=== PATIENT | male | born 1945 | race Caucasian/White ===

== ENCOUNTER 2016-12-08 17:12 | Inpatient (IN) ==
[2016-12-08] MEDS ORDERED: Furosemide 40 MG/4 ML VIAL IVP ONE (20:28)
[2016-12-08] MEDS ORDERED: Ipratropium/Albuterol Neb 3 ML IH ONE (20:28)
[2016-12-08 20:33] LABS: Basophils % 0.3 %; Eosinophils # 0.4 K/mcL (0.0-0.6); Eosinophils % 3.1 %; Hematocrit 40.8 % (37.5-50.1); Hemoglobin 13.3 g/dL (12.9-16.9); Lymphocytes # 0.7 K/mcL (0.6-4.6); Lymphocytes % 6.1 %; Mean Corpuscular HGB Conc 32.6 g/dL (31.6-35.5); Mean Corpuscular Hemoglobin 31.4 pg (28.0-33.3); Mean Corpuscular Volume 96.2 fL (83.0-100.0); Mean Platelet Volume 9.6 fL (9.4-12.4); Monocytes # 0.6 K/mcL (0.0-1.3); Monocytes % 5.1 %; Neutrophils # 10.1 K/mcL (1.6-8.9); Platelet Count 206 K/mcL (140-400); Red Blood Count 4.24 M/mcL (4.19-5.50); Red Cell Distribution Width 15.5 % (11.5-14.5); Segmented Neutrophils % 84.4 %
[2016-12-08] MEDS ORDERED: *HR* HYDROmorphone (PF) 1 MG/ML SYRINGE IV ONE (20:44)
[2016-12-08] MEDS ORDERED: Levofloxacin 750 MG/150 ML 750 MG/150 ML BAG IVPB ONE (20:44)
[2016-12-08 20:45] LABS: BUN/Creatinine Ratio 15 (6-26); Blood Urea Nitrogen 20 mg/dL (8-26); Calcium 8.9 mg/dL (8.6-10.8); Carbon Dioxide 28 mEq/L (19-29); Chloride 89 mEq/L (98-109); Glucose 206 mg/dL (70-99); Osmolality,Calculated 281 (280-300); Potassium 3.8 mEq/L (3.5-4.5); Sodium 131 mEq/L (136-145); eGFR For African Americans > 60 (> 60); eGFR For Non-African Americans 52 (> 60)
--- NOTE | 2016-12-08 20:50 | Emergency Department Note ---
Disposition Clinical Impression: Right upper lobe pneumonia Qualifiers: Pneumonia type: due to unspecified organism Qualified Code(s): J18.9 - Pneumonia, unspecified organism Congestive heart failure Qualifiers: Congestive heart failure type: unspecified congestive heart failure type Congestive heart failure chronicity: acute on chronic Qualified Code(s): I50.9 - Heart failure, unspecified Dyspnea Qualifiers: Dyspnea type: unspecified Qualified Code(s): R06.00 - Dyspnea, unspecified Disposition: Admitted As Inpatient Condition: Serious [facility]: [facility]Primary Care Provider[facility] - Forms: ED Satisfaction Letter Time of Disposition: 20:58 SOB HPI - General Chief Complaint: ED Shortness of Breath/Dyspnea Stated Complaint: Increased shortness of breath Time Seen by Provider: 12/08/16 19:53 Source: patient Mode of arrival: private vehicle Limitations: no limitations Nursing Notes Reviewed: Yes Vital Signs Reviewed: Yes - History of Present Illness Pt Subjective Complaint: shortness of breath, cough Onset (ago): day(s) Severity: severe Consistency/Duration: gradually worsening Improves with: nothing Worsens with: exertion Known history of: congestive heart failure Associated symptoms: Reports: cough, sputum production, other (Swelling of legs) Cough present: Yes Cough Frequency: Persistent Sputum production: Yes Sputum Color: Yellow, Green - Related Data Home oxygen amount: 4 liters Home Medications Medication Instructions Recorded Confirmed Albuterol Sulfate [Albuterol 2 puff IH Q6H PRN 09/23/16 12/08/16 Inhaler] Atorvastatin Calcium 80 mg PO HS 09/23/16 12/08/16 Divalproex (24 HR) [Depakote ER 750 mg PO HS 09/23/16 12/08/16 (24 HR)] Gabapentin [Neurontin] 100 mg PO BID 09/23/16 12/08/16 GuaiFENesin/Dextromethorphan 10 ml PO Q4HR PRN 09/23/16 12/08/16 [Robitussin/Dm] Lidocaine 4% CRM (LMX) [Lmx 4] 1 gm TP TID PRN 09/23/16 12/08/16 Lisinopril [Zestril] 2.5 mg PO DAILY PRN 09/23/16 12/08/16 Nitroglycerin [Nitrostat] 0.4 mg SL Q5M PRN 09/23/16 12/08/16 Ranitidine HCl [Acid Communications Tower Technician] 150 mg PO BID 09/23/16 12/08/16 Triamcinolone Acet 0.1% CRM 1 appl TP TID 09/23/16 12/08/16 [Kenalog] Albuterol Neb [Proventil Neb] 2.5 mg IH Q6H PRN 12/08/16 12/08/16 Azithromycin [Zithromax] 250 mg PO MOWEFR 12/08/16 12/08/16 Budesonide/Formoterol 160/4.5 2 puff IH BIDR 12/08/16 12/08/16 [Symbicort 160/4.5] Carvedilol 3.125 mg PO BID 12/08/16 12/08/16 Furosemide [Lasix] 80 mg PO BID 12/08/16 12/08/16 LORazepam [Ativan] 0.5 mg PO TID PRN 12/08/16 12/08/16 Loratadine [Claritin] 10 mg PO DAILY 12/08/16 12/08/16 Oxygen 4 l NS CONT 12/08/16 12/08/16 PredniSONE 5 mg PO DAILY 12/08/16 12/08/16 Spironolactone [Aldactone] 12.5 mg PO DAILY 12/08/16 12/08/16 Tiotropium [Spiriva] 18 mcg IH DAILY 12/08/16 12/08/16 Previous Rx's Medication Instructions Recorded Aspirin 81 mg PO DAILY tab.chew 09/26/16 Clopidogrel [Plavix] 75 mg PO DAILY #30 tablet 09/26/16 Allergies Allergy/AdvReac Type Severity Reaction Status Date / Time Sulfa (Sulfonamide Allergy Vomiting Verified 09/22/16 23:15 Antibiotics) Amoxicillin [From Augmentin] AdvReac Hives Verified 12/08/16 17:59 clavulanic acid AdvReac Hives Verified 12/08/16 17:59 [From Augmentin] All systems ED: reviewed and negative except as stated. Constitutional: Denies: fever, chills ENT ED: Denies: ear pain, throat pain, congestion Cardiovascular: Reports: dyspnea on exertion, orthopnea. Denies: chest pain, palpitations Respiratory: Reports: cough, dyspnea, wheezes, sputum production Gastrointestinal: Denies: abdominal pain, nausea, vomiting, diarrhea Musculoskeletal: Denies: back pain Integumentary: Reports: rash (Diffuse itchy rash after taking an outpatient antibiotic) Neurological: Denies: headache Past Medical History - Past Medical History Attestation: Yes The following information was validated with the patient. Source: patient, old records reviewed, obtained from family, nursing notes reviewed Medical history: Reports: CHF, COPD, coronary artery disease, CVA, hyperlipidemia, hypertension, myocardial infarction, renal disease Surgical history: Reports: angioplasty/stent, pacemaker/AICD Psychiatric history: Reports: anxiety - Social History Smoking Status: Former smoker Smokeless Tobacco Status: No Alcohol use: Reports: none Drug use: Reports: none Physical Exam - General Limitations: no limitations General appearance: alert, other (Visibly short of breath) - Head Head exam: atraumatic, normocephalic - Eye Eye exam: Present: normal appearance, PERRL, EOMI - ENT ENT exam: normal exam, normal oropharynx, normal external ear exam - Neck Neck exam: Present: normal inspection, full ROM - Chest Chest inspection: Present: normal inspection, symmetric chest wall rise. Absent : tenderness - Respiratory Respiratory exam: Present: respiratory distress (He has tachypnea and frequent cough), wheezes, other (He has rales bilaterally as well.) - Cardiovascular Cardiovascular exam: Present: normal rhythm, tachycardia, normal heart sounds - Abdominal Exam Abdominal exam: Present: soft, Non-Tender - Extremities Exam Extremities exam: Present: full ROM, pedal edema (Left is significantly more edematous than the right. He also complains of tenderness to the left leg) - Neurological Exam Neurological exam: Present: alert, oriented X3 - Psychiatric Psychiatric exam: Present: normal affect, normal mood - Skin Skin exam: Present: warm, dry, rash (Patient has a rash across his trunk that looks like a drug eruption.) Course Course Narrative: Patient presents with shortness of breath is worsening over the past several days. He has edema in his legs and he has rales in his lungs and extensive history of congestive heart failure. He however is coughing up a thick green mucus which I was able to visualize. His chest x-ray shows a pneumonia. I suspect that this is a pneumonia that exacerbating his congestive heart failure. He needs to be admitted to the hospital given how short of breath he appears. We will start breathing treatments treatments and start antibiotics right away. Once I get the labs back, I will consult the hospitalist for admission. - Reevaluation(s) Reevaluation #1: Patient has pneumonia on chest x-ray and I think this is exacerbating his congestive heart failure. I started Levaquin. He received some breathing treatments. He is going to be admitted to the hospital to the hospitalist service. Time: 22:44 - Consultations Consultation #1: [facility] - I discussed the case with the hospitalist. She accepted the patient for admission to the hospital. Time: 22:43 Vital Signs Temperature 97.7 F 12/08/16 17:54 Pulse Rate 104 12/08/16 17:54 Respiratory Rate 20 12/08/16 17:54 Blood Pressure 96/51 12/08/16 17:54 O2 Sat by Pulse Oximetry 95 12/08/16 17:54 Temperature 97.7 F 12/08/16 17:54 Pulse Rate 104 12/08/16 22:15 Respiratory Rate 16 12/08/16 22:15 Blood Pressure 157/86 12/08/16 22:15 O2 Sat by Pulse Oximetry 94 L 12/08/16 22:15 Oxygen Delivery Oxygen Delivery Nasal Cannula Shortness of Breath/Dyspnea - Medical Records Medical records reviewed: Yes I reviewed the patient's medical records. - Lab Data Lab results reviewed: Yes I reviewed the patient's lab results. Result diagrams: 12/08/16 20:21 12/08/16 20:21 Lab Results 12/08/16 12/08/16 12/08/16 Range/Units 20:21 20:21 20:21 WBC 12.0 H (4.3-11.1) K/mcL RBC 4.24 (4.19-5.50) M/mcL Hgb 13.3 (12.9-16.9) g/dL Hct 40.8 (37.5-50.1) % MCV 96.2 (83.0-100.0) fL MCH 31.4 (28.0-33.3) pg MCHC 32.6 (31.6-35.5) g/dL RDW 15.5 H (11.5-14.5) % Plt Count 206 (140-400) K/mcL MPV 9.6 (9.4-12.4) fL Immature Gran % 1.0 (0-4) % Seg Neutrophils % 84.4 % Lymphocytes % 6.1 % Monocytes % 5.1 % Eosinophils % 3.1 % Basophils % 0.3 % Neutrophils # 10.1 H (1.6-8.9) K/mcL Lymphocytes # 0.7 (0.6-4.6) K/mcL Monocytes # 0.6 (0.0-1.3) K/mcL Eosinophils # 0.4 (0.0-0.6) K/mcL Basophils # 0.0 (0.0-0.2) K/mcL Sodium 131 L (136-145) mEq/L Potassium 3.8 (3.5-4.5) mEq/L Chloride 89 L (98-109) mEq/L Carbon Dioxide 28 (19-29) mEq/L BUN 20 (8-26) mg/dL Creatinine 1.36 H (0.72-1.25) mg/dL Est GFR ( Amer) > 60 (> 60) Est GFR (Non-Af Amer) 52 L (> 60) BUN/Creatinine Ratio 15 (6-26) Glucose 206 H (70-99) mg/dL Calculated Osmolality 281 (280-300) Calcium 8.9 (8.6-10.8) mg/dL Troponin I 0.08 H* (0-0.03) ng/mL B-Natriuretic Peptide (0-100) pg/mL 12/08/16 Range/Units 20:21 WBC (4.3-11.1) K/mcL RBC (4.19-5.50) M/mcL Hgb (12.9-16.9) g/dL Hct (37.5-50.1) % MCV (83.0-100.0) fL MCH (28.0-33.3) pg MCHC (31.6-35.5) g/dL RDW (11.5-14.5) % Plt Count (140-400) K/mcL MPV (9.4-12.4) fL Immature Gran % (0-4) % Seg Neutrophils % % Lymphocytes % % Monocytes % % Eosinophils % % Basophils % % Neutrophils # (1.6-8.9) K/mcL Lymphocytes # (0.6-4.6) K/mcL Monocytes # (0.0-1.3) K/mcL Eosinophils # (0.0-0.6) K/mcL Basophils # (0.0-0.2) K/mcL Sodium (136-145) mEq/L Potassium (3.5-4.5) mEq/L Chloride (98-109) mEq/L Carbon Dioxide (19-29) mEq/L BUN (8-26) mg/dL Creatinine (0.72-1.25) mg/dL Est GFR ( Amer) (> 60) Est GFR (Non-Af Amer) (> 60) BUN/Creatinine Ratio (6-26) Glucose (70-99) mg/dL Calculated Osmolality (280-300) Calcium (8.6-10.8) mg/dL Troponin I (0-0.03) ng/mL B-Natriuretic Peptide 1103 H (0-100) pg/mL - Radiology Data Radiology results reviewed: Yes I reviewed the patient's radiology results. - EKG Data EKG attestation: Yes I reviewed and interpreted this EKG. EKG shows normal: Reports: sinus rhythm, axis, intervals, QRS complexes, ST-T waves Rate: Reports: tachycardia Interpretation: Reports: other (Sinus tachycardia without ischemic change)
[2016-12-09] MEDS ORDERED: Nitroglycerin 0.4 MG TAB.SUBL SL PRN (00:15)
[2016-12-09] MEDS ORDERED: Naloxone 0.4 MG/ML INJ IVP PRN (00:28)
--- NOTE | 2016-12-09 00:51 | Internal Med History&Physical ---
Date of Encounter: 12/09/16 Time of Encounter: 00:10 Assessment and Plan (1) Acute exacerbation of CHF (congestive heart failure) Current visit: No Status: Acute Status post pacemaker with AICD due to low EF. 6lbs weight gain in the past 3 days, worsening orthopnea, BNP of 1103, and worsening swelling. Coreg increased to 6.25 BID. 60mg IV lasix BID. Incentive spirometry. I/Os with daily weights. Most recent echo in August 2016 shows EF of 30-35%. Asymmetric swelling of the lower extremities with Left > Right, Ultrasound was negative for DVT. Qualifiers: Congestive heart failure type: systolic Qualified Code(s): I50.23 - Acute on chronic systolic (congestive) heart failure (2) Acute respiratory failure with hypoxia Current visit: No Status: Acute COPD exacerbation secondary to acute CHF exacerbation. Continue home steroids 5mg/day. Chest CT deomstrated sever emphysema with bilateral airspace disease most likely atalectasis and/ or scarring. No definite evidence of pneumonia is identified. Supplemental oxygen 4L, saturating well on 4L. Head of the bed elevated. Treat underlying CHF exacerbation, see above. (3) Elevated troponin Current visit: Yes Status: Acute Likely secondary to demand ischemia. Initial troponin .08 and repeat was .09. Will continue to trend troponins. (4) DVT prophylaxis Current visit: No Status: Acute Lovenox (5) CAD (coronary artery disease) Current visit: No Status: Chronic Status post stent placement Continue lipitor and carvedilol increased to 6.25. Continue plavix Qualifiers: Coronary Disease-Associated Artery/Lesion type: unspecified vessel or lesion type [place] vs. transplanted heart: unspecified whether [place] or transplanted heart Associated angina: angina presence unspecified Qualified Code(s): I25.10 - Atherosclerotic heart disease of [place] coronary artery without angina pectoris (6) CKD (chronic kidney disease) stage 3, GFR 30-59 ml/min Current visit: No Status: Chronic continue to monitor Creatinine 1.36 at this time, which is improved from previous admissions. Patient only reports having one functioning kidney. Internal Medicine - H&P: HPI Chief complaint: dyspnea Admitted From: Emergency Dept Plans for Post Hospital Care: Home History of present illness: Mr. Amor is a 71 year old male with PMH of CHF, COPD, CAD, CVA, HLD, HTN, MO , and renal disease who presented to the emergency department for shortness of breath. The patient has a longstanding history of COPD and is on 4L oxygen at home with daily prednisone of 5mg and Azithromycin doses given on Monday, Monday, and Monday. The patient has had underlying shortness of breath for the past two and a half months, with acute worsening in the past 2 days. The patient reports a 6lbs weight gain in the past two days, and he reports wheezing , cough productive of green sputum, increased swelling, and severe orthopnea. He denies fevers and chills. The patient's family was present for gathering of the history and gave additional information stating that the patient had a STEMI in 2004 and additional MO in August with his defibrillator going off twice that month. He has since had runs of ventricular tachycardia. He was put on amiodarone in August, but was taken off again on September 30 due to severe side effects causing deterioration in the patient. They stated that around this time he was so weak that he was unable to sit up on his own in bed. He is now able to ambulate on his own with a cane, so he has improved overall, but continues to have complications due to his COPD. He has been treated on and off for pneumonia constantly since August and was recently tried on Augmentin, but had a rash shortly after starting it, so it was discontinued. Past Med Surg Social Fam HX - Past Medical History Medical history: CHF, COPD, coronary artery disease, CVA, hyperlipidemia, hypertension, myocardial infarction, renal disease Psychiatric history: anxiety - Past Surgical History Surgical History: angioplasty/stent, pacemaker/AICD - Social History Smoking Status: Former smoker Smokeless Tobacco Status: No Alcohol use: none Drug use: none - Family History Father Living Status: Hx Family Cardiac Disorders: Yes (MO) Hx Family Respiratory Disorders: No Hx Family Cancer: No Hx Family GI Disorders: No Hx Family Endocrine Disorder: No Hx Family Neuromuscular Disorders: No Hx Family Neurologic Disorders: No Hx Family HEENT Disorders: No Hx Family Autoimmune Disorders: No Mother Living Status: Hx Family Cardiac Disorders: No Hx Family Respiratory Disorders: No Hx Family Cancer: Yes (breast) Hx Family GI Disorders: No Hx Family Endocrine Disorder: No Hx Family Neuromuscular Disorders: No Hx Family Neurologic Disorders: No Hx Family HEENT Disorders: No Hx Family Autoimmune Disorders: No Brother Living Status: Still Living Hx Family Cardiac Disorders: Yes Hx Family Respiratory Disorders: No Hx Family Cancer: No Hx Family GI Disorders: No Hx Family Endocrine Disorder: No Hx Family Neuromuscular Disorders: No Hx Family Neurologic Disorders: No Hx Family HEENT Disorders: No Hx Family Autoimmune Disorders: No Daughter Living Status: Still Living Hx Family Cardiac Disorders: Yes Hx Family Respiratory Disorders: No Hx Family Cancer: No Hx Family GI Disorders: No Hx Family Endocrine Disorder: No Hx Family Neuromuscular Disorders: No Hx Family Neurologic Disorders: No Hx Family HEENT Disorders: No Hx Family Autoimmune Disorders: No Internal Medicine - H&P: Meds Albuterol Sulfate [Albuterol Inhaler] 2 puff IH Q6H PRN 09/23/16 [History] Atorvastatin Calcium 80 mg PO HS 09/23/16 [History] Divalproex (24 HR) [Depakote ER (24 HR)] 750 mg PO HS 09/23/16 [History] Gabapentin [Neurontin] 100 mg PO BID 09/23/16 [History] GuaiFENesin/Dextromethorphan [Robitussin/Dm] 10 ml PO Q4HR PRN 09/23/16 [History ] Lidocaine 4% CRM (LMX) [Lmx 4] 1 gm TP TID PRN 09/23/16 [History] Lisinopril [Zestril] 2.5 mg PO DAILY PRN 09/23/16 [History] Nitroglycerin [Nitrostat] 0.4 mg SL Q5M PRN 09/23/16 [History] Ranitidine HCl [Acid Theater Company Producer] 150 mg PO BID 09/23/16 [History] Triamcinolone Acet 0.1% CRM [Kenalog] 1 appl TP TID 09/23/16 [History] Aspirin 81 mg PO DAILY tab.chew 09/26/16 [Rx] Clopidogrel [Plavix] 75 mg PO DAILY #30 tablet 09/26/16 [Rx] Albuterol Neb [Proventil Neb] 2.5 mg IH Q6H PRN 12/08/16 [History] Azithromycin [Zithromax] 250 mg PO MOWEFR 12/08/16 [History] Budesonide/Formoterol 160/4.5 [Symbicort 160/4.5] 2 puff IH BIDR 12/08/16 [ History] Carvedilol 3.125 mg PO BID 12/08/16 [History] Furosemide [Lasix] 80 mg PO BID 12/08/16 [History] LORazepam [Ativan] 0.5 mg PO TID PRN 12/08/16 [History] Loratadine [Claritin] 10 mg PO DAILY 12/08/16 [History] Oxygen 4 l NS CONT 12/08/16 [History] PredniSONE 5 mg PO DAILY 12/08/16 [History] Spironolactone [Aldactone] 12.5 mg PO DAILY 12/08/16 [History] Tiotropium [Spiriva] 18 mcg IH DAILY 12/08/16 [History] Allergies Sulfa (Sulfonamide Antibiotics) Allergy (Verified 09/22/16 23:15) Vomiting Amoxicillin [From Augmentin] Adverse Reaction (Verified 12/08/16 17:59) Hives clavulanic acid [From Augmentin] Adverse Reaction (Verified 12/08/16 17:59) Hives All Systems PM: A 10-system review of systems was performed and is negative for pertinent findings except as documented above in the HPI. - Constitutional Constitutional: no chills, no fever(s), no night sweats - EENT Eyes: no change in vision, no discharge, no pain, no photophobia Ears: no ear discharge, no ear pain, no tinnitus Nose, mouth and throat: no dysphagia, no nasal discharge, no neck pain, no sore throat - Cardiovascular Cardiovascular ROS IM: dyspnea, orthopnea, no chest pain, no diaphoresis, no lightheadedness, no palpitations, no syncope - Respiratory Respiratory: cough, dyspnea, dyspnea on exertion, wheezing, excessive phlegm production, change in phlegm color - Gastrointestinal Gastrointestinal: no abdominal pain, no diarrhea, no hematemesis, no hematochezia, no melena, no nausea, no vomiting - Musculoskeletal Musculoskeletal ROS IM: no numbness, no tingling - Integumentary Integumentary IM: no rash, no unusual bruising - Neurological Neurological ROS: no confusion, no convulsions, no focal weakness, no numbness, no tingling, no tremor(s) - Hematologic/Lymphatic Hematologic/Lymphatic: no easy bruising - Constitutional Vitals: Temp Pulse Resp BP Pulse Ox 97.7 F 104 20 152/78 95 12/08/16 23:48 01/12/17 23:48 12/08/16 23:48 12/08/16 23:48 12/08/16 23:48 General appearance: Present: cooperative, A&O X 3 - Head Head exam: Present: atraumatic, normocephalic - Eye Eye exam: Present: EOMI, PERRL, conjuntiva pink, sclera anicteric Pupils: Present: PERRL - Neck Neck exam general surgery: Present: supple, trachea midline. Absent: lymphadenopathy - Respiratory Respiratory exam: Present: decreased breath sounds (bilaterally), rhonchi, wheezes. Absent: accessory muscle use, rales Additional comments: poor air movement - Cardiovascular Cardiovascular exam: Present: RRR, +S1, +S2. Absent: diastolic murmur, gallop, rubs, systolic murmur - GI/Abdominal GI/Abdominal exam: Present: normal bowel sounds, soft, no peritoneal signs. Absent: distended, tenderness - Extremities Exam Extremities exam: Present: pedal edema (bilateral +3 on the left +2 on the right ), warm, radial pulses palpable and symetrical. Absent: calf tenderness, cyanotic - Neurological Exam Neurological exam: Present: CN II-XII intact, oriented X3, no focal deficits. Absent: facial droop, speech deficit - Skin Skin exam: Present: dry, intact, rash (present over the chest and abdomen consistent with drug eruption) Additional comments: some bruising present over the dorsal aspects of the hands. Internal Med - H&P Results - Labs CBC & Chem 7: 12/08/16 20:21 12/08/16 20:21 - Attending Attestation I examined this patient and my medical decision-making was reviewed with the OPTIMIZATION ANALYST/PA/Advanced Practice Nurse/Resident Physician. I agree with the documented findings, disposition and treatment plan as described except to the extent set forth below.
[2016-12-09] MEDS: Aspirin 81 MG TAB.CHEW PO SCH ×2 (01:40→08:46)
[2016-12-09] MEDS: Ipratropium/Albuterol Neb 3 ML IH SCH ×5 (03:51→23:01)
[2016-12-09] MEDS: *HR* Enoxaparin 40 MG/0.4 ML SYRINGE SQ SCH (06:19)
--- NOTE | 2016-12-09 06:56 | Venous Imaging Report ---
LE Venous Duplex Patient Name:Pradeep Amor Order Number:[id number] Procedure Date:12/08/2016 Date:1945ge:71 yrs Gender:Male Location:[facility] ED Room #: ER26 Dispatcher Electric Power:Shona Martell RDCS Referring MD:Ronald Blackmon MD finance insurance manager:[facility] Reading MD:Pradeep Jaime MD Primary Indications:Swelling of limb Secondary Indications: Risk Factors Yes/No Anticoagulants Yes Impressions: Normal left lower extremity deep and superficial venous exam. Normal contralateral common femoral vein. Recommendations: Preliminary given to Neymar in ED. Findings Venous Duplex Results: Right: Venous imaging of the lower extremity reveals full patency and normal vessel compressibility of the right common femoral. Doppler signals in the evaluated veins were normal. Left: Venous imaging of the lower extremity reveals full patency and normal vessel compressibility of the left distal iliac, left common femoral, left superficial femoral, left popliteal, left posterior tibial, left peroneal, left great saphenous and left lesser saphenous. Doppler signals in the evaluated veins were normal. Prior Study: No prior study available for comparison. Lower Extremity Venous Duplex Side Vein Compress Spontaneous Flow Augment Diameter (cm) Depth (cm) Left Distal Iliac Normal Yes Phasic Yes Left Common Femoral Normal Yes Phasic Yes Left Superficial Femoral Normal Yes Phasic Yes Left Popliteal Normal Yes Phasic Yes Left Posterior Tibial Normal Yes Phasic Yes Left Peroneal Normal Yes Phasic Yes Left Great Saphenous Normal Yes Phasic Yes Left Lesser Saphenous Normal Yes Phasic Yes Right Common Femoral Normal Yes Phasic Yes Updated by Pradeep Jaime MD on 12/09/2016 6:50:04 AM electronically signed on 12/09/2016 6:50:26 AM with status of Final
[2016-12-09] MEDS ORDERED: Furosemide 40 MG/4 ML VIAL IVP SCH (08:00)
[2016-12-09] MEDS: Gabapentin 100 MG CAPSULE PO SCH ×2 (08:45→20:50)
[2016-12-09] MEDS: Famotidine 20 MG TABLET PO SCH ×2 (08:46→20:50)
[2016-12-09] MEDS: predniSONE 5 MG TABLET PO SCH (08:46)
[2016-12-09] MEDS: Spironolactone 25 MG TABLET PO SCH (08:48)
--- NOTE | 2016-12-09 09:20 | Cardiology Consult Note ---
Date of Encounter: 12/09/16 Time of Encounter: 09:00 Assessment and Plan (1) Acute systolic CHF (congestive heart failure), NYHA class 4 Current Visit: No Status: Acute Acute on chronic systolic CHF. EF 35% on TTE in 2012. Change lasix to bumex 2 mg IV BID. Strict I&O and daily weight. Low sodium diet. CHF education reviewed. Monitor BMP. (2) Elevated troponin Current Visit: Yes Status: Acute Mild troponin elevation 0.06, 0.09, 0.11. Likely demand ischemia in the setting of acute on chronic systolic dysfunction and COPD exacerbation. TTE ordered by hospitalist. Will need most recent TTE from [place] to compare. Chest pain free. Continue asa, plavix, statin, and bb. (3) CAD (coronary artery disease) Current Visit: No Status: Chronic Status post multiple PCI in 2004, 2011, and 2014. Continue medical therapy. Qualifiers: Coronary Disease-Associated Artery/Lesion type: unspecified vessel or lesion type [place] vs. transplanted heart: unspecified whether mi[place]kmaq or transplanted heart Associated angina: angina presence unspecified Qualified Code(s): I25.10 - Atherosclerotic heart disease of mi'kmaq coronary artery without angina pectoris (4) ICD (implantable cardioverter-defibrillator) in place Current Visit: Yes Status: Acute Reports ICD shocks in 2014. No shocks since that time. Follows with Dr. Reyes in [place], [place] for device check. Discussion w patient/family: The assessment and plan as outlined above was discussed with the patient and/or family members who expressed understanding and agreement. All questions were answered. Thank you for involving us in the care of your patient. Please call with any questions. History of Present Illness Consult date: 12/09/16 Requesting physician: Israel Barrientos Consult reason: CHF Chief complaint: SOB, BLE edema History of present illness: Mr. Amor is a 71 year old male with a known history of CAD s/p multiple PCI, ICMP EF 35%, ICD placement in 2004, carotid artery disease, CVA, and COPD, who presented the hospital with worsening shortness of breath and BLE edema over the past week. He admits to a six lb gradual weight gain over the past two months. Admits to orthopnea. His cleaner and dyer from [facility] increased his lasix two weeks ago for lower extremity edema. He has always followed with [facility] for his heart disease since 2004, when he had his original infarct.Additional cardiac stents were placed in 2011 and 2014. He denies chest pain or palpitations. He is diagnosed with COPD exacerbations and acute on chronic systolic CHF. BNP 1103, mild troponin elevation up to 0.11. CT scan of the chest shows severe emphysema. Cardiology consulted for recommendations on CHF management. Past Med Surg Social Fam HX - Past Medical History Medical history: CHF, COPD, coronary artery disease, CVA, hyperlipidemia, hypertension, myocardial infarction, renal disease Psychiatric history: anxiety - Past Surgical History Surgical History: angioplasty/stent, pacemaker/AICD - Social History Smoking Status: Former smoker Smokeless Tobacco Status: No Alcohol use: none Drug use: none - Family History Father Living Status: Age at : 66 Cause of : Heart attack Hx Family Cardiac Disorders: Yes (OR) Hx Family Respiratory Disorders: No Hx Family Cancer: No Hx Family GI Disorders: No Hx Family Genitourinary Disorders: Yes (Kidney Disease) Hx Family Endocrine Disorder: No Hx Family Musculoskeletal Disorders: No Hx Family Neuromuscular Disorders: No Hx Family Neurologic Disorders: No Hx Family HEENT Disorders: No Hx Family Autoimmune Disorders: No Hx Family Reproductive Disorders: No Hx Family Psychosocial Disorders: Yes (Anxiety, Depression) Hx Family Medical Disorders: No Mother Living Status: Hx Family Cardiac Disorders: No Hx Family Respiratory Disorders: No Hx Family Cancer: Yes (breast) Hx Family GI Disorders: No Hx Family Endocrine Disorder: No Hx Family Neuromuscular Disorders: No Hx Family Neurologic Disorders: No Hx Family HEENT Disorders: No Hx Family Autoimmune Disorders: No Brother Living Status: Still Living Hx Family Cardiac Disorders: Yes Hx Family Respiratory Disorders: No Hx Family Cancer: No Hx Family GI Disorders: No Hx Family Endocrine Disorder: No Hx Family Neuromuscular Disorders: No Hx Family Neurologic Disorders: No Hx Family HEENT Disorders: No Hx Family Autoimmune Disorders: No Daughter Living Status: Still Living Hx Family Cardiac Disorders: Yes Hx Family Respiratory Disorders: No Hx Family Cancer: No Hx Family GI Disorders: No Hx Family Endocrine Disorder: No Hx Family Neuromuscular Disorders: No Hx Family Neurologic Disorders: No Hx Family HEENT Disorders: No Hx Family Autoimmune Disorders: No Medications and Allergies Albuterol Sulfate [Albuterol Inhaler] 2 puff IH Q6H PRN 09/23/16 [History] Atorvastatin Calcium 80 mg PO HS 09/23/16 [History] Divalproex (24 HR) [Depakote ER (24 HR)] 750 mg PO HS 09/23/16 [History] Gabapentin [Neurontin] 100 mg PO BID 09/23/16 [History] GuaiFENesin/Dextromethorphan [Robitussin/Dm] 10 ml PO Q4HR PRN 09/23/16 [History ] Lidocaine 4% CRM (LMX) [Lmx 4] 1 gm TP TID PRN 09/23/16 [History] Lisinopril [Zestril] 2.5 mg PO DAILY PRN 09/23/16 [History] Nitroglycerin [Nitrostat] 0.4 mg SL Q5M PRN 09/23/16 [History] Ranitidine HCl [Acid Immigration Consultant] 150 mg PO BID 09/23/16 [History] Triamcinolone Acet 0.1% CRM [Kenalog] 1 appl TP TID 09/23/16 [History] Aspirin 81 mg PO DAILY tab.chew 09/26/16 [Rx] Clopidogrel [Plavix] 75 mg PO DAILY #30 tablet 09/26/16 [Rx] Albuterol Neb [Proventil Neb] 2.5 mg IH Q6H PRN 12/08/16 [History] Azithromycin [Zithromax] 250 mg PO MOWEFR 12/08/16 [History] Budesonide/Formoterol 160/4.5 [Symbicort 160/4.5] 2 puff IH BIDR 12/08/16 [ History] Carvedilol 3.125 mg PO BID 12/08/16 [History] Furosemide [Lasix] 80 mg PO BID 12/08/16 [History] LORazepam [Ativan] 0.5 mg PO TID PRN 12/08/16 [History] Loratadine [Claritin] 10 mg PO DAILY 12/08/16 [History] Oxygen 4 l NS CONT 12/08/16 [History] PredniSONE 5 mg PO DAILY 12/08/16 [History] Spironolactone [Aldactone] 12.5 mg PO DAILY 12/08/16 [History] Tiotropium [Spiriva] 18 mcg IH DAILY 12/08/16 [History] Allergies Sulfa (Sulfonamide Antibiotics) Allergy (Verified 09/22/16 23:15) Vomiting Amoxicillin [From Augmentin] Adverse Reaction (Verified 12/08/16 17:59) Hives clavulanic acid [From Augmentin] Adverse Reaction (Verified 12/08/16 17:59) Hives All Systems Review: A 10-system review of systems was performed and is negative for pertinent findings except as documented above in the HPI. Physical Examination Vital Signs, Last 4 Hours Temp Pulse Resp BP Pulse Ox 12/09/16 08:02 97.7 F 80 18 156/74 94 L General: Conversant, No Apparent Distress HEENT: Atraumatic, Normocephaly, Mucus Membranes Moist Neck: No JVD, Normal carotid pulses Cardiac: Reg Rate and Rhythm, Normal S1 and S2, No Murmur Lungs: Other (Diminished in all lung lorenzo, shallow breathing, faint expiratory whezes. ) Neuro: Alert and responsive, No focal deficits noted Abdomen: Soft, Non-Tender Skin: No rashes noted on visualized skin Musculoskeletal: No Chest Wall Tenderness Extremities: Other (1+ edema from knee to ankles. ) Results 12/08/16 20:21 12/08/16 20:21 Lab Results 12/09/16 12/09/16 01:03 05:41 Troponin I 0.09 H* 0.11 H* - Imaging and Cardiology Echo: report reviewed (05/26/13- LVEF 35% * Mild diastolic dysfunction of the left ventricle. * Normal right ventricular size and function. * Mild aortic regurgitation. * Mild mitral regurgitation. * Unable to assess RVSP due to lack of adequate TR jet.) - EKG Interpretation EKG results cardiology: personally reviewed (ST , no acute ST changes.) Consult Discharge Plan - Plan [facility]: [facility] [Primary Care Provider] -
[2016-12-09 09:22] LABS: Bilirubin,Urine Negative (Negative); Blood,Urine Trace (Negative); Clarity,Urine Clear (Clear); Color,Urine Yellow (Yellow); Glucose,Urine (UA) Normal (Normal); Ketones,Urine Negative (Negative); Leukocyte Esterase,Urine Negative (Negative); Nitrite,Urine Negative (Negative); PH,Urine 5.5 pH Units (5.0-8.0); Protein,Urine 30 mg/dL (Neg-Trace); Specific Gravity,Urine 1.013 (1.010-1.025); Urobilinogen,Urine Normal (Normal)
[2016-12-09 09:24] LABS: Bacteria,Urine None Seen per hpf (None-Few); Hyaline Casts,Urine None Seen per lpf (None-Few); RBC,Urine 0-3 per hpf (0-3); Squamous Epithelial Cell,Urine Moderate per lpf (None-Few); WBC,Urine 0-3 per hpf (0-3)
--- NOTE | 2016-12-09 09:56 | Electrocardiograph Report ---
[facility] Test Date: 2016-12-08 Pat Name: Pradeep Amor Department: 104 Room: 2A34 Gender: M [employer] C[employer] Machine: [facility] : 1945 Requested By: Casper Mc Order Number: [id number] Reading MD: Jamila Santos Measurements Intervals [place] Rate: 102 P: 7 CO: 112 QRS: 34 QRSD: 125 T: 67 QT: 365 QTc: 423 Interpretive Statements SINUS TACHYCARDIA WITH SHORT CO INTERVAL MODERATE INTRAVENTRICULAR CONDUCTION DELAY ABNORMAL RHYTHM ECG WARNING: DATA QUALITY MAY AFFECT INTERPRETATION Electronically Signed On 12-09-16 09:56:01 EST by Jamila Santos
[2016-12-09] MEDS ORDERED: *HR* Dextrose 50 % in Water (Syg) 50 ML SYRINGE IVP PRN (12:17)
[2016-12-09] MEDS ORDERED: D5% in Water 1,000 ML IV PRN (12:17)
[2016-12-09] MEDS ORDERED: Dextrose Gel 15 GM PO PRN ×2 (12:17)
--- NOTE | 2016-12-09 15:14 | ECHO - Doppler Report ---
Echocardiogram Name: rPadeep Amor Date of Study: 12/09/2016 Date: 1945 Ht: 66.0 in Medical Record#: [id number] Age: 71 Wt: 182.0 lb Gender: Male BSA: 1.92 Order #: [id number] Location: [facility] OP Room #: 2A34 Reading Physician: Wayne Dunlap DO, LAYTON, SCOTT ANDERSON Supply Chain Intern: Shirley Awad RVT Ordering Physician: Israel Barrientos MD Primary Physician: [facility] Indications: Ischemic cardiomyopathy, Acute on chronic CHF Impressions: LVEF 30%. Severe global left ventricular systolic dysfunction with regional variation. Indeterminate diastolic function. Right ventricle was not well visualized. Grossly, it appears normal in size with near normal function. Mild aortic regurgitation, which was not well evaluated and could be underestimated. Unable to estimate RVSP due to lack of TR jet. A device lead was visualized in the right atrium and right ventricle. Left Ventricular Wall Motion: Rest Echo Findings The apex, apical inferior, mid inferior, basal inferior, apical anterior, mid anterior, basal anterior, apical septal, mid inferior septal, basal inferior septal, apical lateral, mid anterior lateral, basal anterior lateral, mid anterior septal, mid inferior lateral, basal anterior septal and basal inferior lateral gu were hypokinetic. Findings: Study Quality * Technically sub-optimal due to poor echocardiographic windows. ECG Findings * Sinus tachycardia. Left Ventricle * LVEF 30%. * Normal LV chamber size and wall thickness. * Severe global left ventricular systolic dysfunction with regional variation. * Indeterminate diastolic function. Right Ventricle * Right ventricle was not well visualized. Grossly, it appears normal in size with near normal function. Left Atrium * Mildly dilated left atrium. Right Atrium * Normal right atrial size. Interatrial Septum * Interatrial septum not well evaluated. Aortic Valve * Aortic valve not well visualized. * Grossly, the aortic valve appears mildly calcified. * Mild aortic regurgitation, which was not well evaluated and could be underestimated. * No aortic stenosis. Mitral Valve * Mildly thickened mitral valve leaflets. * Trace mitral regurgitation. * No mitral stenosis. Tricuspid Valve * Normal tricuspid valve structure and function. * No tricuspid regurgitation. * Unable to estimate RVSP due to lack of TR jet. Pulmonic Valve * Pulmonic valve not well visualized. Aorta * Normally sized aortic root. Pericardium * The pericardium appears normal. IVC * Normal IVC dimensions and inspiratory collapse. Device lead * A device lead was visualized in the right atrium and right ventricle. Pulmonary Artery * Pulmonary artery not well visualized. History Hypertension Hypercholesteremia Family History of CAD History of CAD/PTCA Myocardial Infarction Congestive Heart Failure Pacer/ICD Implant 05/27/2013 a Previous Echo was performed. Measurements: BP: 139/ 82 2D Normal Values RVIDd: 2.40 cm <2.7 cm IVSd: .70 cm 0.6 - 1.0 cm LVIDd: 5.60 cm 3.7 - 5.6 cm LVPWd: .50 cm 0.6 - 1.1 cm LVIDs: 5.00 cm 1.5 - 3.6 cm AO: 3.20 cm < 4.0 cm LA: 3.50 cm 2.0 - 4.0cm %FS: 10.70 cm >25 % LA volume: 58 Mitral Valve Peak E:1.40 m/sec Peak E' Lat Nirav:4.29 cm/s Peak E' Med Nirav:5.65 cm/s E/E' Lat Ratio:32.6 E/E' Med Ratio:24.8 Aortic Valve AI pressure Half-time: 290.00 msec Tricuspid Valve TV Regurg Peak Grad: 3.00mmHg TV Regurg Peak Nirav: .87m/sec Updated by Wayne Dunlap DO, FACChang, JUSTIN, SCOTT on 12/09/2016 3:07:49 PM electronically signed on 12/09/2016 3:08:25 PM with status of Final Wall Motion Davis: 1=Normal, 2=Hypokinesis, 3=Akinesis, 4=Dyskinesis, 5=Aneurysmal, 6=Hyperkinetic, X=Not Visualized (Blank)=Missing
[2016-12-09] MEDS ORDERED: Ondansetron 4 MG/2 ML VIAL IVP PRN (16:15)
[2016-12-09] MEDS: Bumetanide 1 MG/4 ML VIAL IVP SCH (17:09)
[2016-12-09] MEDS: Insulin LISPRO 300 UNITS/3 ML VIAL SQ SCH ×2 (17:14→20:39)
[2016-12-09] MEDS: Divalproex (24 HR) 250 MG TABLET PO SCH (20:50)
[2016-12-10] MEDS: Ipratropium/Albuterol Neb 3 ML IH SCH ×4 (03:32→23:27)
[2016-12-10] MEDS: *HR* Enoxaparin 40 MG/0.4 ML SYRINGE SQ SCH (06:04)
[2016-12-10 07:26] LABS: BUN/Creatinine Ratio 11 (6-26); Blood Urea Nitrogen 15 mg/dL (8-26); Calcium 8.8 mg/dL (8.6-10.8); Carbon Dioxide 33 mEq/L (19-29); Chloride 93 mEq/L (98-109); Glucose 111 mg/dL (70-99); Osmolality,Calculated 286 (280-300); Potassium 3.7 mEq/L (3.5-4.5); Sodium 137 mEq/L (136-145); eGFR For African Americans > 60 (> 60); eGFR For Non-African Americans 54 (> 60)
[2016-12-10] MEDS: Insulin LISPRO 300 UNITS/3 ML VIAL SQ SCH ×4 (08:44→21:57)
[2016-12-10] MEDS: Spironolactone 25 MG TABLET PO SCH (08:51)
[2016-12-10] MEDS: Gabapentin 100 MG CAPSULE PO SCH ×2 (08:51→20:06)
[2016-12-10] MEDS: predniSONE 5 MG TABLET PO SCH (08:51)
[2016-12-10] MEDS: Aspirin 81 MG TAB.CHEW PO SCH (08:51)
[2016-12-10] MEDS: Famotidine 20 MG TABLET PO SCH ×2 (08:52→20:06)
[2016-12-10] MEDS: Bumetanide 1 MG/4 ML VIAL IVP SCH ×2 (08:52→17:13)
[2016-12-10] MEDS: traMADol 50 MG TABLET PO PRN (14:02)
--- NOTE | 2016-12-10 19:11 | Internal Med Progress Note ---
Date of Encounter: 12/10/16 Time of Encounter: 11:00 - Assessment and plan (1) Dyspnea Current Visit: Yes Status: Acute Assessment and plan: Oxygen by nasal cannula. Maintain oxygen saturation above 92%. Continuous pulse oximetry. Qualifiers: Dyspnea type: unspecified Qualified Code(s): R06.00 - Dyspnea, unspecified (2) ICD (implantable cardioverter-defibrillator) in place Current Visit: Yes Status: Acute (3) Acute respiratory failure with hypoxia Current Visit: No Status: Acute (4) Acute systolic CHF (congestive heart failure), NYHA class 4 Current Visit: No Status: Acute Assessment and plan: IV Bumex. Fluid restriction 1200 mL daily. Daily weights. (5) CKD (chronic kidney disease) stage 3, GFR 30-59 ml/min Current Visit: No Status: Chronic Assessment and plan: Monitor BUN and creatinine closely. Avoid nephrotoxins. (6) UTI (urinary tract infection) Current Visit: Yes Status: Acute Assessment and plan: We will treat with ceftriaxone. 4 follow up urine culture and sensitivity. Qualifiers: Urinary tract infection type: acute cystitis Hematuria presence: without hematuria Qualified Code(s): N30.00 - Acute cystitis without hematuria - Subjective Interval history: Patient admitted with shortness of breath and abdominal lower extremity swelling , reports that over the last 24 hours he had increased urination and decreased swelling. His shortness of breath has improved significantly with diuretic treatment. - Constitutional Vitals: Temp Pulse Resp BP Pulse Ox 97.4 F L 92 18 121/78 94 L 12/10/16 17:19 12/10/16 17:19 12/10/16 17:19 12/10/16 17:19 12/10/16 17:19 General appearance: Present: cooperative, A&O X 3 - Respiratory Respiratory exam: Present: CTAB. Absent: accessory muscle use, rales, rhonchi, wheezes - Cardiovascular Cardiovascular exam: Present: RRR, +S1, +S2. Absent: diastolic murmur, gallop, rubs, systolic murmur - GI/Abdominal GI/Abdominal exam: Present: normal bowel sounds, soft, no peritoneal signs. Absent: distended, tenderness - Extremities Exam Extremities exam: Present: pedal edema, warm, radial pulses palpable and symetrical. Absent: calf tenderness, cyanotic - Skin Skin exam: Present: dry, intact Internal Medicine: Result - Labs CBC & Chem 7: 12/08/16 20:21 12/10/16 06:50 Labs: BMP 12/10/16 06:50 Sodium 137 Potassium 3.7 Chloride 93 L Carbon Dioxide 33 H BUN 15 Creatinine 1.32 H Glucose 111 H Calcium 8.8 Consult Discharge Plan - Plan [facility]errals: [facility] [Primary Care Provider] -
[2016-12-10] MEDS: *HR* LORazepam 1 MG TABLET PO PRN (20:06)
[2016-12-10] MEDS: Divalproex (24 HR) 250 MG TABLET PO SCH (20:07)
[2016-12-11] MEDS: Ipratropium/Albuterol Neb 3 ML IH SCH ×4 (05:07→22:15)
[2016-12-11] MEDS: *HR* Enoxaparin 40 MG/0.4 ML SYRINGE SQ SCH (07:30)
[2016-12-11 07:33] LABS: Basophils # 0.1 K/mcL (0.0-0.2); Basophils % 0.4 %; Eosinophils # 0.6 K/mcL (0.0-0.6); Hematocrit 38.1 % (37.5-50.1); Immature Granulocytes % 1.2 % (0-4); Lymphocytes % 7.9 %; Mean Corpuscular HGB Conc 31.5 g/dL (31.6-35.5); Mean Corpuscular Hemoglobin 30.6 pg (28.0-33.3); Mean Corpuscular Volume 97.2 fL (83.0-100.0); Mean Platelet Volume 9.5 fL (9.4-12.4); Monocytes # 0.8 K/mcL (0.0-1.3); Monocytes % 6.1 %; Neutrophils # 10.2 K/mcL (1.6-8.9); Platelet Count 245 K/mcL (140-400); Red Blood Count 3.92 M/mcL (4.19-5.50); Red Cell Distribution Width 15.7 % (11.5-14.5); Segmented Neutrophils % 79.4 %
[2016-12-11 07:58] LABS: Calcium 8.8 mg/dL (8.6-10.8)
[2016-12-11] MEDS: Aspirin 81 MG TAB.CHEW PO SCH (08:40)
[2016-12-11] MEDS: Famotidine 20 MG TABLET PO SCH ×2 (08:40→23:13)
[2016-12-11] MEDS: Spironolactone 25 MG TABLET PO SCH (08:40)
[2016-12-11] MEDS: predniSONE 5 MG TABLET PO SCH (08:40)
[2016-12-11] MEDS: Gabapentin 100 MG CAPSULE PO SCH ×2 (08:40→23:13)
[2016-12-11] MEDS: Bumetanide 1 MG/4 ML VIAL IVP SCH (08:41)
[2016-12-11] MEDS: Insulin LISPRO 300 UNITS/3 ML VIAL SQ SCH ×4 (08:41→23:14)
[2016-12-11 10:58] LABS: ABG Base Excess 10.9 mEq/L (-2.0 to 3.0); ABG HCO3 37.2 mEQ/L (21-27); ABG Oxygen Saturation 91 % (95-98); ABG PCO2 56 mmHg (35-45); ABG PH 7.43 pH Units (7.32-7.45); ABG PO2 59 mmHg (85-104); ABG TCO2 38.9 mEq/L (20-26)
[2016-12-11 10:59] LABS: Blood Gas FiO2 35 %
[2016-12-11] MEDS: methylPREDNISolone 125 MG/2 ML VIAL IVP SCH ×3 (11:37→23:14)
[2016-12-11] MEDS ORDERED: Vancomycin 1,250 MG in D5% in Water 250 ML IVPB SCH (12:00)
[2016-12-11] MEDS ORDERED: Vancomycin 1,500 MG in D5% in Water 250 ML IVPB ONE (13:00)
[2016-12-11] MEDS: Furosemide 40 MG/4 ML VIAL IVP SCH ×2 (13:20→23:13)
[2016-12-11] MEDS: Cefepime HCl 2,000 MG in D5% in Water (Mini-Bag+) 100 ML IVPB SCH (16:05)
[2016-12-11] MEDS: Sennosides/Docusate Sodium TABLET PO SCH (16:08)
--- NOTE | 2016-12-11 18:21 | Internal Med Progress Note ---
Date of Encounter: 12/11/16 Time of Encounter: 10:00 - Assessment and plan (1) Dyspnea Current Visit: Yes Status: Acute Assessment and plan: I placed him on BiPAP. Obtain ABG which reveals acute on chronic hypercarbic respiratory failure. Maintain oxygen saturation above 92%. Continuous pulse oximetry. Qualifiers: Dyspnea type: unspecified Qualified Code(s): R06.00 - Dyspnea, unspecified (2) ICD (implantable cardioverter-defibrillator) in place Current Visit: Yes Status: Acute (3) Acute respiratory failure with hypoxia Current Visit: No Status: Acute Assessment and plan: The patient is in respiratory distress due to pulmonary edema secondary to severe acute worsening of systolic congestive heart failure. He required his emergent and complex medical measures to manipulate and stabilize organ system and prevent further decline which could lead to organ system impairment. These measures include BiPAP therapy. Continuous pulse oximetry. obtaining blood work and imaging studies and adjusting medication according to test results. Total critical care time spent for today was 40 minutes and did not include any procedure time. (4) Acute systolic CHF (congestive heart failure), NYHA class 4 Current Visit: No Status: Acute Assessment and plan: Stop IV Bumex. Start IV Lasix 80 mg every 8 hours. Estrella catheter placement for strict urine output monitoring. Fluid restriction 1200 mL daily. Daily weights. (5) CKD (chronic kidney disease) stage 3, GFR 30-59 ml/min Current Visit: No Status: Chronic Assessment and plan: Monitor BUN and creatinine closely. Avoid nephrotoxins. (6) UTI (urinary tract infection) Current Visit: Yes Status: Acute Assessment and plan: We will treat with ceftriaxone. 4 follow up urine culture and sensitivity. Qualifiers: Urinary tract infection type: acute cystitis Hematuria presence: without hematuria Qualified Code(s): N30.00 - Acute cystitis without hematuria - Subjective Interval history: Patient cannot provide accurate history due to altered mental status, he is more drowsy and confused today. He appears to be in moderate respiratory distress. I have placed him on BiPAP. Per the patient's daughter he is more confused today than he was yesterday. Patient admitted with shortness of breath and abdominal lower extremity swelling , reports that over the last 24 hours he had increased urination and decreased swelling. His shortness of breath has improved significantly with diuretic treatment. - Constitutional Vitals: Temp Pulse Resp BP Pulse Ox 98.2 F 83 22 116/67 90 L 12/11/16 12:00 12/11/16 12:00 12/11/16 12:00 12/11/16 12:00 12/11/16 16:12 General appearance: Present: cooperative, A&O X 3 - Eye Eye exam: Present: PERRL, conjuntiva pink, sclera anicteric Pupils: Present: PERRL - Neck Neck exam general surgery: Present: supple, trachea midline. Absent: lymphadenopathy - Respiratory Respiratory exam: Present: CTAB, rales, wheezes. Absent: accessory muscle use, rhonchi - Cardiovascular Cardiovascular exam: Present: RRR, +S1, +S2, systolic murmur. Absent: diastolic murmur, gallop, rubs - GI/Abdominal GI/Abdominal exam: Present: normal bowel sounds, soft, no peritoneal signs. Absent: distended, tenderness - Extremities Exam Extremities exam: Present: pedal edema, warm, radial pulses palpable and symetrical. Absent: calf tenderness, cyanotic Internal Medicine: Result - Labs CBC & Chem 7: 12/11/16 06:35 12/11/16 06:35 Labs: Short CBC 12/11/16 Range/Units 06:35 WBC 12.8 H (4.3-11.1) K/mcL Hgb 12.0 L (12.9-16.9) g/dL Hct 38.1 (37.5-50.1) % Plt Count 245 (140-400) K/mcL Neutrophils # 10.2 H (1.6-8.9) K/mcL BMP 12/11/16 06:35 Sodium 133 L Potassium 4.0 Chloride 93 L Carbon Dioxide 26 BUN 25 D Creatinine 1.57 H Glucose 143 H Calcium 8.8 - ABG Interpretation ABG results: ABG ABG pH 7.43 pH Units (7.32-7.45) 12/11/16 10:48 ABG pCO2 56 mmHg (35-45) H 12/11/16 10:48 ABG pO2 59 mmHg (85-104) L 12/11/16 10:48 ABG O2 Saturation 91 % (95-98) L 12/11/16 10:48 - Impressions Impressions Chest X-Ray 12/11/16 10:31 IMPRESSION: CHF with developing pulmonary edema and/or pneumonia. D/ / Nelson Campbell MD / Nelson Campbell MD Interpreting Provider: Nelson Campbell MD - VTE Documentation of Mechanical Device: Graduated compression elastic hosiery Consult Discharge Plan - Plan [facility]errals: [facility] [Primary Care Provider] -
[2016-12-11] MEDS: Divalproex (24 HR) 250 MG TABLET PO SCH (23:15)
[2016-12-12] MEDS: Cefepime HCl 2,000 MG in D5% in Water (Mini-Bag+) 100 ML IVPB SCH ×2 (01:22→13:13)
[2016-12-12] MEDS: Vancomycin 1,500 MG in D5% in Water 250 ML IVPB SCH (03:08)
[2016-12-12] MEDS: Ipratropium/Albuterol Neb 3 ML IH SCH ×4 (04:22→23:45)
[2016-12-12] MEDS: Furosemide 40 MG/4 ML VIAL IVP SCH ×3 (05:05→22:24)
[2016-12-12] MEDS: *HR* Enoxaparin 40 MG/0.4 ML SYRINGE SQ SCH (05:09)
[2016-12-12 05:20] LABS: Basophils % 0.1 %; Eosinophils % 0.1 %; Hematocrit 36.6 % (37.5-50.1); Hemoglobin 11.7 g/dL (12.9-16.9); Immature Granulocytes % 0.8 % (0-4); Lymphocytes # 0.5 K/mcL (0.6-4.6); Lymphocytes % 6.3 %; Mean Corpuscular Hemoglobin 31.3 pg (28.0-33.3); Mean Corpuscular Volume 97.9 fL (83.0-100.0); Mean Platelet Volume 10.1 fL (9.4-12.4); Monocytes # 0.2 K/mcL (0.0-1.3); Monocytes % 2.2 %; Neutrophils # 7.8 K/mcL (1.6-8.9); Platelet Count 235 K/mcL (140-400); Red Blood Count 3.74 M/mcL (4.19-5.50); Red Cell Distribution Width 15.5 % (11.5-14.5); Segmented Neutrophils % 90.5 %
[2016-12-12 05:32] LABS: Calcium 8.4 mg/dL (8.6-10.8); Potassium 3.8 mEq/L (3.5-4.5)
[2016-12-12] MEDS: Spironolactone 25 MG TABLET PO SCH (09:12)
[2016-12-12] MEDS: Aspirin 81 MG TAB.CHEW PO SCH (09:12)
[2016-12-12] MEDS: methylPREDNISolone 125 MG/2 ML VIAL IVP SCH ×2 (09:12→17:48)
[2016-12-12] MEDS: Insulin LISPRO 300 UNITS/3 ML VIAL SQ SCH ×4 (09:12→22:25)
[2016-12-12] MEDS: Famotidine 20 MG TABLET PO SCH ×2 (09:12→22:24)
[2016-12-12] MEDS: Gabapentin 100 MG CAPSULE PO SCH ×2 (09:13→22:23)
[2016-12-12] MEDS: Sennosides/Docusate Sodium TABLET PO SCH (09:13)
--- NOTE | 2016-12-12 20:30 | Internal Med Progress Note ---
Date of Encounter: 12/12/16 Time of Encounter: 10:00 - Assessment and plan (1) Dyspnea Current Visit: Yes Status: Acute Assessment and plan: I placed him on BiPAP. Obtain ABG which reveals acute on chronic hypercarbic respiratory failure. Maintain oxygen saturation above 92%. Continuous pulse oximetry. Qualifiers: Dyspnea type: unspecified Qualified Code(s): R06.00 - Dyspnea, unspecified (2) ICD (implantable cardioverter-defibrillator) in place Current Visit: Yes Status: Acute (3) Acute respiratory failure with hypoxia Current Visit: No Status: Acute Assessment and plan: T the patient was weaned down to nasal cannula. Continued this. We will use BiPAP only as needed. Incentive spirometry. Inhaled bronchodilators. (4) Acute systolic CHF (congestive heart failure), NYHA class 4 Current Visit: No Status: Acute Assessment and plan: Continue with IV Lasix 80 mg every 8 hours. Has had good diuretic response. Estrella catheter placement for strict urine output monitoring. Fluid restriction 1200 mL daily. Daily weights. (5) CKD (chronic kidney disease) stage 3, GFR 30-59 ml/min Current Visit: No Status: Chronic Assessment and plan: Monitor BUN and creatinine closely. Avoid nephrotoxins. (6) UTI (urinary tract infection) Current Visit: Yes Status: Acute Assessment and plan: We will treat with ceftriaxone. Monitor clinically. We will treat for 7-10 days.. Qualifiers: Urinary tract infection type: acute cystitis Hematuria presence: without hematuria Qualified Code(s): N30.00 - Acute cystitis without hematuria (7) Altered mental status Current Visit: Yes Status: Acute Assessment and plan: Delirium likely related to medical disease including UTI heart failure and hypoxia. The patient's daughter is insistent that he is not back to baseline and is concerned of the intracranial process I will order a CT of the head without contrast to rule out any bleed or acute stroke. Qualifiers: Altered mental status type: delirium Qualified Code(s): R41.0 - Disorientation, unspecified - Subjective Interval history: On 12/12/2016: Patient's mental status has significantly improved, his shortness of breath has improved. He has slight confusion and amnesia regarding the events that happened yesterday when he was acutely ill and required BiPAP treatment and several additional doses of diuretic. On 12/11/2016: Patient cannot provide accurate history due to altered mental status, he is more drowsy and confused today. He appears to be in moderate respiratory distress. I have placed him on BiPAP. Per the patient's daughter he is more confused today than he was yesterday. Patient admitted with shortness of breath and abdominal lower extremity swelling , reports that over the last 24 hours he had increased urination and decreased swelling. His shortness of breath has improved significantly with diuretic treatment. - Constitutional Vitals: Temp Pulse Resp BP Pulse Ox 97.6 F 92 14 125/73 97 12/12/16 16:04 12/12/16 16:04 12/12/16 16:16 12/12/16 16:04 12/12/16 16:16 General appearance: Present: cooperative, A&O X 3 - Eye Eye exam: Present: PERRL, conjuntiva pink, sclera anicteric Pupils: Present: PERRL - Neck Neck exam general surgery: Present: supple, trachea midline. Absent: lymphadenopathy - Respiratory Respiratory exam: Present: CTAB, rales, wheezes. Absent: accessory muscle use, rhonchi - Cardiovascular Cardiovascular exam: Present: RRR, +S1, +S2. Absent: diastolic murmur, gallop, rubs, systolic murmur - GI/Abdominal GI/Abdominal exam: Present: normal bowel sounds, soft, no peritoneal signs. Absent: distended, tenderness - Extremities Exam Extremities exam: Present: pedal edema, warm, radial pulses palpable and symetrical. Absent: calf tenderness, cyanotic Internal Medicine: Result - Labs CBC & Chem 7: 12/12/16 04:15 12/12/16 04:15 Labs: Short CBC 12/12/16 Range/Units 04:15 WBC 8.6 (4.3-11.1) K/mcL Hgb 11.7 L (12.9-16.9) g/dL Hct 36.6 L (37.5-50.1) % Plt Count 235 (140-400) K/mcL Neutrophils # 7.8 (1.6-8.9) K/mcL BMP 12/12/16 04:15 Sodium 135 L Potassium 3.8 Chloride 91 L Carbon Dioxide 26 BUN 26 Creatinine 1.64 H Glucose 365 H Calcium 8.4 L - ABG Interpretation ABG results: ABG ABG pH 7.43 pH Units (7.32-7.45) 12/11/16 10:48 ABG pCO2 56 mmHg (35-45) H 12/11/16 10:48 ABG pO2 59 mmHg (85-104) L 12/11/16 10:48 ABG O2 Saturation 91 % (95-98) L 12/11/16 10:48 - Impressions Impressions Head CT 12/12/16 17:30 IMPRESSION: No acute intracranial abnormality. D/ / 12/12/2016 18:18:27 Chetan Gonsales MD / [email or web address] Interpreting Provider: Chetan Gonsales MD - VTE Documentation of Mechanical Device: Graduated compression elastic hosiery Consult Discharge Plan - Plan [facility]errals: [facility] [Primary Care Provider] -
[2016-12-12] MEDS: Insulin DETEMIR 100 UNIT/ML X5UNITS SQ SCH (22:24)
[2016-12-13] MEDS: methylPREDNISolone 125 MG/2 ML VIAL IVP SCH ×3 (00:41→17:05)
[2016-12-13] MEDS: Cefepime HCl 2,000 MG in D5% in Water (Mini-Bag+) 100 ML IVPB SCH ×2 (00:41→13:32)
[2016-12-13 04:48] LABS: Basophils % 0.1 %; Hematocrit 34.7 % (37.5-50.1); Hemoglobin 11.4 g/dL (12.9-16.9); Immature Granulocytes % 0.9 % (0-4); Lymphocytes # 0.4 K/mcL (0.6-4.6); Lymphocytes % 3.1 %; Mean Corpuscular HGB Conc 32.9 g/dL (31.6-35.5); Mean Corpuscular Hemoglobin 31.7 pg (28.0-33.3); Mean Corpuscular Volume 96.4 fL (83.0-100.0); Monocytes # 0.5 K/mcL (0.0-1.3); Monocytes % 3.5 %; Neutrophils # 12.7 K/mcL (1.6-8.9); Platelet Count 285 K/mcL (140-400); Red Cell Distribution Width 15.4 % (11.5-14.5); Segmented Neutrophils % 92.4 %
[2016-12-13] MEDS: Ipratropium/Albuterol Neb 3 ML IH SCH ×4 (05:31→22:41)
[2016-12-13] MEDS: Vancomycin 1,500 MG in D5% in Water 250 ML IVPB SCH (05:36)
[2016-12-13] MEDS: Furosemide 40 MG/4 ML VIAL IVP SCH ×2 (05:37→21:22)
[2016-12-13] MEDS: *HR* Enoxaparin 40 MG/0.4 ML SYRINGE SQ SCH (05:38)
[2016-12-13] MEDS ORDERED: Aminoglycoside Consult 1 EACH MC ONE (08:05)
[2016-12-13] MEDS: Insulin LISPRO 300 UNITS/3 ML VIAL SQ SCH ×4 (08:30→21:22)
[2016-12-13] MEDS: Insulin DETEMIR 100 UNIT/ML X5UNITS SQ SCH ×2 (08:32→21:21)
[2016-12-13] MEDS: Sennosides/Docusate Sodium TABLET PO SCH (08:32)
[2016-12-13] MEDS: Aspirin 81 MG TAB.CHEW PO SCH (08:33)
[2016-12-13] MEDS: Famotidine 20 MG TABLET PO SCH ×2 (08:33→21:26)
[2016-12-13] MEDS: Spironolactone 25 MG TABLET PO SCH (08:34)
[2016-12-13] MEDS: Gabapentin 100 MG CAPSULE PO SCH ×2 (08:34→21:20)
[2016-12-13] MEDS: traMADol 50 MG TABLET PO PRN (08:53)
[2016-12-13] MEDS ORDERED: Potassium Chloride Elixir 20 MEQ/15 ML UDC PO ONE (11:59)
--- NOTE | 2016-12-13 14:45 | Internal Med Progress Note ---
Date of Encounter: 12/13/16 Time of Encounter: 14:43 - Assessment and plan (1) Right upper lobe pneumonia Current Visit: Yes Status: Acute Assessment and plan: Blood cultures remain negative. Improving oxygen requirements. Noted to have leukocytosis but that is possibly related to steroids. Patient does not appear toxic. Hold broad-spectrum IV antibiotics and continue IV Levaquin for now. Influenza and pneumococcal immunization prior to discharge. Qualifiers: Pneumonia type: due to unspecified organism Qualified Code(s): J18.9 - Pneumonia, unspecified organism (2) Acute exacerbation of CHF (congestive heart failure) Current Visit: Yes Status: Acute Assessment and plan: Improving significantly. Decrease IV Lasix due to worsening renal function. Noted to have lost about 5 kg since admission. Continue fluid restriction, daily weights and monitor urine output closely. Continue beta diann and spironolactone. Supplemental oxygen as needed. Qualifiers: Congestive heart failure type: systolic Qualified Code(s): I50.23 - Acute on chronic systolic (congestive) heart failure (3) CKD (chronic kidney disease) stage 3, GFR 30-59 ml/min Current Visit: Yes Status: Chronic Assessment and plan: Nonoliguric. Noted to have worsening renal function, likely related to the use of IV diuretics. Decrease the dose of Lasix today and continue to monitor serum creatinine. Patient otherwise overall appears improved. (4) Chronic obstructive pulmonary disease Current Visit: Yes Status: Chronic Qualifiers: COPD type: unspecified COPD Qualified Code(s): J44.9 - Chronic obstructive pulmonary disease, unspecified (5) Chronic respiratory failure with hypoxia Current Visit: Yes Status: Chronic Assessment and plan: Related to underlying COPD and CHF. Oxygen requirements trending down to baseline. (6) Essential hypertension Current Visit: Yes Status: Chronic (7) ICD (implantable cardioverter-defibrillator) in place Current Visit: Yes Status: Chronic (8) CAD (coronary artery disease) Current Visit: Yes Status: Chronic Qualifiers: Coronary Disease-Associated Artery/Lesion type: [place] artery [place] vs. transplanted heart: unspecified whether [place] or transplanted heart Associated angina: angina presence unspecified Qualified Code(s): I25.10 - Atherosclerotic heart disease of [place] coronary artery without angina pectoris - Subjective Interval history: Appears much better today from the previous notes. Awake and oriented. Reports no chest pain, shortness of breath and reports improved leg swelling. Noted to have good amount of urine output. Estrella bag currently shows blood tinged urine and patient denies any pain. - Constitutional Vitals: Temp Pulse Resp BP Pulse Ox 97.4 F L 83 17 138/72 99 12/13/16 11:40 12/13/16 11:40 12/13/16 11:40 12/13/16 11:40 12/13/16 11:40 General appearance: Present: A&O X 3, answers questions appropriately - Head Head exam: Present: atraumatic, normocephalic - Neck Neck exam general surgery: Present: supple, trachea midline. Absent: lymphadenopathy - Respiratory Respiratory exam: Present: CTAB (Coarse breath sounds bilaterally, no active wheezing or crackles). Absent: accessory muscle use, rales, rhonchi, wheezes - Cardiovascular Cardiovascular exam: Present: RRR, +S1, +S2. Absent: diastolic murmur, gallop, rubs, systolic murmur - GI/Abdominal GI/Abdominal exam: Present: normal bowel sounds, soft, no peritoneal signs. Absent: distended, tenderness - Extremities Exam Extremities exam: Present: full ROM, pedal edema (Trace pedal edema), warm, radial pulses palpable and symetrical. Absent: calf tenderness, cyanotic - Neurological Exam Neurological exam: Present: CN II-XII intact, oriented X3, no focal deficits. Absent: pronater drift, facial droop, speech deficit - Skin Skin exam: Present: dry, intact Internal Medicine: Result - Labs CBC & Chem 7: 12/13/16 04:11 12/13/16 04:11 Labs: Short CBC 12/13/16 Range/Units 04:11 WBC 13.7 H D (4.3-11.1) K/mcL Hgb 11.4 L (12.9-16.9) g/dL Hct 34.7 L (37.5-50.1) % Plt Count 285 (140-400) K/mcL Neutrophils # 12.7 H (1.6-8.9) K/mcL BMP 12/13/16 04:11 Sodium 137 Potassium 3.0 L Chloride 93 L Carbon Dioxide 29 BUN 41 H D Creatinine 1.97 H Glucose 301 H Calcium 8.0 L - ABG Interpretation ABG results: ABG ABG pH 7.43 pH Units (7.32-7.45) 12/11/16 10:48 ABG pCO2 56 mmHg (35-45) H 12/11/16 10:48 ABG pO2 59 mmHg (85-104) L 12/11/16 10:48 ABG O2 Saturation 91 % (95-98) L 12/11/16 10:48 - Impressions Impressions Head CT 12/12/16 17:30 IMPRESSION: No acute intracranial abnormality. D/ / 12/12/2016 18:18:27 Chetan Gonsales MD / [email or web address] Interpreting Provider: Chetan Gonsales MD - VTE Documentation of Mechanical Device: Graduated compression elastic hosiery Consult Discharge Plan - Plan [facility]: [facility] [Primary Care Provider[facility] -
[2016-12-13] MEDS ORDERED: Levofloxacin 750 MG/150 ML 750 MG/150 ML BAG IVPB ONE (21:00)
[2016-12-13] MEDS: *HR* LORazepam 1 MG TABLET PO PRN (21:21)
[2016-12-14 01:59] LABS: Basophils % 0.1 %; Hematocrit 36.1 % (37.5-50.1); Hemoglobin 11.8 g/dL (12.9-16.9); Immature Granulocytes % 1.5 % (0-4); Lymphocytes # 0.5 K/mcL (0.6-4.6); Lymphocytes % 3.7 %; Mean Corpuscular HGB Conc 32.7 g/dL (31.6-35.5); Mean Corpuscular Hemoglobin 31.4 pg (28.0-33.3); Mean Platelet Volume 9.9 fL (9.4-12.4); Monocytes # 0.6 K/mcL (0.0-1.3); Monocytes % 4.2 %; Neutrophils # 13.4 K/mcL (1.6-8.9); Platelet Count 285 K/mcL (140-400); Red Blood Count 3.76 M/mcL (4.19-5.50); Red Cell Distribution Width 15.4 % (11.5-14.5); Segmented Neutrophils % 90.5 %
[2016-12-14 02:06] LABS: Calcium 7.9 mg/dL (8.6-10.8); Potassium 3.3 mEq/L (3.5-4.5)
[2016-12-14] MEDS: Ipratropium/Albuterol Neb 3 ML IH SCH ×4 (04:45→22:37)
[2016-12-14] MEDS: methylPREDNISolone 125 MG/2 ML VIAL IVP SCH (06:18)
[2016-12-14] MEDS: *HR* Enoxaparin 40 MG/0.4 ML SYRINGE SQ SCH (06:19)
[2016-12-14] MEDS: traMADol 50 MG TABLET PO PRN (06:52)
[2016-12-14] MEDS: Insulin LISPRO 300 UNITS/3 ML VIAL SQ SCH ×4 (08:31→22:59)
[2016-12-14] MEDS: Famotidine 20 MG TABLET PO SCH ×2 (08:33→22:58)
[2016-12-14] MEDS: Spironolactone 25 MG TABLET PO SCH (08:33)
[2016-12-14] MEDS: Sennosides/Docusate Sodium TABLET PO SCH (08:34)
[2016-12-14] MEDS: Aspirin 81 MG TAB.CHEW PO SCH (08:34)
[2016-12-14] MEDS: Gabapentin 100 MG CAPSULE PO SCH ×2 (08:34→22:58)
[2016-12-14] MEDS: Insulin DETEMIR 100 UNIT/ML X5UNITS SQ SCH ×2 (08:34→22:59)
[2016-12-14] MEDS: Furosemide 40 MG/4 ML VIAL IVP SCH (08:34)
[2016-12-14] MEDS ORDERED: Potassium Chloride Elixir 20 MEQ/15 ML UDC PO ONE (11:14)
--- NOTE | 2016-12-14 11:28 | Internal Med Progress Note ---
Date of Encounter: 12/14/16 Time of Encounter: 11:28 - Assessment and plan (1) Right upper lobe pneumonia Current Visit: Yes Status: Acute Assessment and plan: Blood cultures remain negative. Improving oxygen requirements, currently at baseline of 4 L/m. Noted to have leukocytosis but that is possibly related to steroids. Patient does not appear toxic. continue IV Levaquin for now. Influenza and pneumococcal immunization prior to discharge. Qualifiers: Pneumonia type: due to unspecified organism Qualified Code(s): J18.1 - Lobar pneumonia, unspecified organism (2) Acute exacerbation of CHF (congestive heart failure) Current Visit: Yes Status: Acute Assessment and plan: Improving significantly. Decrease Lasix and switch to oral medication due to worsening renal function. Noted to have lost about 5 kg since admission. Continue fluid restriction, daily weights and monitor urine output closely. Continue beta diann and spironolactone. Supplemental oxygen as needed. Qualifiers: Congestive heart failure type: systolic Qualified Code(s): I50.23 - Acute on chronic systolic (congestive) heart failure (3) CKD (chronic kidney disease) stage 3, GFR 30-59 ml/min Current Visit: Yes Status: Chronic Assessment and plan: Nonoliguric. Noted to have worsening renal function, likely related to the use of IV diuretics. Serum creatinine is noted to be 2, 1.9 yesterday, likely becoming stable. Decrease the dose of Lasix today and continue to monitor serum creatinine. Patient otherwise overall appears improved. (4) Chronic obstructive pulmonary disease Current Visit: Yes Status: Chronic Qualifiers: COPD type: unspecified COPD Qualified Code(s): J44.9 - Chronic obstructive pulmonary disease, unspecified (5) Chronic respiratory failure with hypoxia Current Visit: Yes Status: Chronic Assessment and plan: Related to underlying COPD and CHF. Oxygen requirements trending down to baseline. (6) Essential hypertension Current Visit: Yes Status: Chronic (7) ICD (implantable cardioverter-defibrillator) in place Current Visit: Yes Status: Chronic (8) CAD (coronary artery disease) Current Visit: Yes Status: Chronic Qualifiers: Coronary Disease-Associated Artery/Lesion type: [place] artery [place] vs. transplanted heart: unspecified whether [place] or transplanted heart Associated angina: angina presence unspecified Qualified Code(s): I25.10 - Atherosclerotic heart disease of [place] coronary artery without angina pectoris - Subjective Interval history: No new complaints. Happy with the care he receives here. No chest pain, shortness of breath and reports his leg swelling has significantly improved since he has been here. Plan of care discussed with the patient, his at bedside and his daughter Kelsey at bedside. - Constitutional Vitals: Temp Pulse Resp BP Pulse Ox 97.7 F 92 16 125/75 95 12/14/16 08:11 12/14/16 08:11 12/14/16 08:11 12/14/16 08:11 12/14/16 08:11 General appearance: Present: A&O X 3, answers questions appropriately - Respiratory Respiratory exam: Present: CTAB. Absent: accessory muscle use, rales, rhonchi, wheezes - Cardiovascular Cardiovascular exam: Present: RRR, +S1, +S2. Absent: diastolic murmur, gallop, rubs, systolic murmur - Extremities Exam Extremities exam: Present: pedal edema, warm, radial pulses palpable and symetrical. Absent: calf tenderness, cyanotic - Neurological Exam Neurological exam: Present: CN II-XII intact, oriented X3, no focal deficits. Absent: pronater drift, facial droop, speech deficit Internal Medicine: Result - Labs CBC & Chem 7: 12/14/16 01:33 12/14/16 01:33 Labs: Short CBC 12/14/16 Range/Units 01:33 WBC 14.8 H (4.3-11.1) K/mcL Hgb 11.8 L (12.9-16.9) g/dL Hct 36.1 L (37.5-50.1) % Plt Count 285 (140-400) K/mcL Neutrophils # 13.4 H (1.6-8.9) K/mcL BMP 12/14/16 01:33 Sodium 133 L Potassium 3.3 L Chloride 90 L Carbon Dioxide 29 BUN 51 H Creatinine 2.03 H Glucose 266 H Calcium 7.9 L - ABG Interpretation ABG results: ABG ABG pH 7.43 pH Units (7.32-7.45) 12/11/16 10:48 ABG pCO2 56 mmHg (35-45) H 12/11/16 10:48 ABG pO2 59 mmHg (85-104) L 12/11/16 10:48 ABG O2 Saturation 91 % (95-98) L 12/11/16 10:48 - VTE Documentation of Mechanical Device: Graduated compression elastic hosiery Consult Discharge Plan - Plan [facility]: [facility] [Primary Care Provider] -
[2016-12-14] MEDS: MethylPREDNISolone 40 MG/ML VIAL IVP SCH (16:41)
[2016-12-14] MEDS: Furosemide 40 MG TABLET PO SCH (16:41)
[2016-12-14] MEDS: *HR* LORazepam 1 MG TABLET PO PRN (22:58)
[2016-12-15] MEDS: traMADol 50 MG TABLET PO PRN ×2 (02:01→08:54)
[2016-12-15] MEDS: *HR* LORazepam 1 MG TABLET PO PRN (02:01)
[2016-12-15] MEDS: Ipratropium/Albuterol Neb 3 ML IH SCH ×2 (03:23→11:20)
[2016-12-15 05:58] LABS: Basophils % 0.1 %; Eosinophils % 0.1 %; Hemoglobin 11.9 g/dL (12.9-16.9); Immature Granulocytes % 1.4 % (0-4); Lymphocytes # 0.7 K/mcL (0.6-4.6); Lymphocytes % 4.7 %; Mean Corpuscular HGB Conc 32.2 g/dL (31.6-35.5); Mean Corpuscular Hemoglobin 30.9 pg (28.0-33.3); Mean Corpuscular Volume 96.1 fL (83.0-100.0); Mean Platelet Volume 9.8 fL (9.4-12.4); Monocytes # 1.1 K/mcL (0.0-1.3); Monocytes % 7.2 %; Neutrophils # 12.9 K/mcL (1.6-8.9); Platelet Count 284 K/mcL (140-400); Red Blood Count 3.85 M/mcL (4.19-5.50); Red Cell Distribution Width 15.5 % (11.5-14.5); Segmented Neutrophils % 86.5 %
[2016-12-15 06:08] LABS: Calcium 7.7 mg/dL (8.6-10.8); Potassium 3.9 mEq/L (3.5-4.5)
[2016-12-15] MEDS: MethylPREDNISolone 40 MG/ML VIAL IVP SCH (06:31)
[2016-12-15] MEDS: *HR* Enoxaparin 40 MG/0.4 ML SYRINGE SQ SCH (06:31)
[2016-12-15] MEDS: Gabapentin 100 MG CAPSULE PO SCH (08:49)
[2016-12-15] MEDS: Sennosides/Docusate Sodium TABLET PO SCH (08:49)
[2016-12-15] MEDS: Spironolactone 25 MG TABLET PO SCH (08:49)
[2016-12-15] MEDS: Famotidine 20 MG TABLET PO SCH (08:49)
[2016-12-15] MEDS: Aspirin 81 MG TAB.CHEW PO SCH (08:49)
[2016-12-15] MEDS: Furosemide 40 MG TABLET PO SCH (08:50)
[2016-12-15] MEDS: Insulin LISPRO 300 UNITS/3 ML VIAL SQ SCH ×2 (08:52→12:20)
[2016-12-15] MEDS: Insulin DETEMIR 100 UNIT/ML X5UNITS SQ SCH (08:54)
[2016-12-15 11:15] VITALS: BP 143/85
--- NOTE | 2016-12-15 12:30 | Discharge Summary ---
Date of Encounter: 12/15/16 Time of Encounter: 11:45 - Discharge Diagnosis (1) Right upper lobe pneumonia Priority: Primary Status: Acute Qualifiers: Pneumonia type: due to unspecified organism Qualified Code(s): J18.1 - Lobar pneumonia, unspecified organism (2) Acute exacerbation of CHF (congestive heart failure) Priority: Primary Status: Acute Qualifiers: Congestive heart failure type: systolic Qualified Code(s): I50.23 - Acute on chronic systolic (congestive) heart failure (3) CKD (chronic kidney disease) stage 3, GFR 30-59 ml/min Priority: Secondary Status: Chronic (4) Chronic obstructive pulmonary disease Priority: Secondary Status: Chronic Qualifiers: COPD type: emphysema Emphysema type: unspecified Qualified Code(s): J43.9 - Emphysema, unspecified (5) Chronic respiratory failure with hypoxia Priority: Secondary Status: Chronic (6) Essential hypertension Priority: Secondary Status: Chronic (7) ICD (implantable cardioverter-defibrillator) in place Priority: Secondary Status: Chronic (8) CAD (coronary artery disease) Priority: Secondary Status: Chronic Qualifiers: Coronary Disease-Associated Artery/Lesion type: [place] artery [place] vs. transplanted heart: [place] heart Associated angina: angina presence unspecified Qualified Code(s): I25.10 - Atherosclerotic heart disease of [place] coronary artery without angina pectoris - Discharge Medications Prescriptions: Blood-Glucose Meter [Blood Glucose Monitor] 1 each ACHS 30 Days Lancets/Blood Glucose Strips [Fora [id number] Str-Lnct] 1 each [facility] 30 Days Levofloxacin [Levaquin] 500 mg PO Q48H #3 tablet Potassium Chloride 20 meq PO DAILY #30 tab.er.prt PredniSONE 40 mg PO DAILY 8 Days Home Medications: Albuterol Sulfate [Albuterol Inhaler] 2 puff IH Q6H PRN 09/23/16 [History] Atorvastatin Calcium 80 mg PO HS 09/23/16 [History] Divalproex (24 HR) [Depakote ER (24 HR)] 750 mg PO HS 09/23/16 [History] Gabapentin [Neurontin] 100 mg PO BID 09/23/16 [History] GuaiFENesin/Dextromethorphan [Robitussin/Dm] 10 ml PO Q4HR PRN 09/23/16 [History ] Lidocaine 4% CRM (LMX) [Lmx 4] 1 gm TP TID PRN 09/23/16 [History] Lisinopril [Zestril] 2.5 mg PO DAILY PRN 09/23/16 [History] Nitroglycerin [Nitrostat] 0.4 mg SL Q5M PRN 09/23/16 [History] Ranitidine HCl [Acid Dog [employer]er] 150 mg PO BID 09/23/16 [History] Triamcinolone Acet 0.1% CRM [Kenalog] 1 appl TP TID 09/23/16 [History] Aspirin 81 mg PO DAILY tab.chew 09/26/16 [Rx] Clopidogrel [Plavix] 75 mg PO DAILY #30 tablet 09/26/16 [Rx] Albuterol Neb [Proventil Neb] 2.5 mg IH Q6H PRN 12/08/16 [History] Budesonide/Formoterol 160/4.5 [Symbicort 160/4.5] 2 puff IH BIDR 12/08/16 [ History] Loratadine [Claritin] 10 mg PO DAILY 12/08/16 [History] Oxygen 4 l NS CONT 12/08/16 [History] PredniSONE 5 mg PO DAILY 12/08/16 [History] Spironolactone [Aldactone] 12.5 mg PO DAILY 12/08/16 [History] Tiotropium [Spiriva] 18 mcg IH DAILY 12/08/16 [History] Blood-Glucose Meter [Blood Glucose Monitor] 1 each ACHS 30 Days 12/15/16 [Rx] Carvedilol 6.25 mg PO BID #30 12/15/16 [Rx] Furosemide [Lasix] 40 mg PO BID #0 12/15/16 [Rx] LORazepam [Ativan] 0.5 mg PO TID PRN #20 12/15/16 [Rx] Lancets/Blood Glucose Strips [Fora [id number] [facility]] 1 each ACHS 30 Days 12/15/16 [Rx] Levofloxacin [Levaquin] 500 mg PO Q48H #3 tablet 12/15/16 [Rx] Potassium Chloride 20 meq PO DAILY #30 tab.er.prt 12/15/16 [Rx] PredniSONE 40 mg PO DAILY 8 Days 12/15/16 [Rx] Allergies/Adverse Reactions: Allergies Sulfa (Sulfonamide Antibiotics) Allergy (Verified 09/22/16 23:15) Vomiting Amoxicillin [From Augmentin] Adverse Reaction (Verified 12/08/16 17:59) Hives clavulanic acid [From Augmentin] Adverse Reaction (Verified 12/08/16 17:59) Hives Procedures/tests Complete & Pending: Procedures Performed prior 72 hours Category Date Time Status Head CT without Contrast [CT head/brain wo con] [CT] Cat Scan 12/12/16 17:30 Completed Stat Date of admission: 12/08/16 22:49 Primary care physician: PCP NERY Consults: 12/09/16 05:31 Consult to Cardiology [CONS] Routine Comment: Consulting Provider: Cardiology Yaneth Reason for Consult: ACUTE ON CHRONIC chf. Call Completed: No 12/09/16 11:52 Consult to Fruit Washer [CONS] Routine Reason for SW Consult: Pt has HH 12/13/16 14:48 Consult to Physical Therapy [CONS] Routine Comment: Evaluate, develop and implement POC Discharging clinician: Gabriella Vasquez Anticipated date of discharge: 12/15/16 - Patient Status Disposition: Home, Self-Care Condition: Fair Functional capacity at discharge: uses cane/walker Overall status at discharge: patient is progressing back to baseline - Discharge Instructions Follow Up With: NERY,PCP [Primary Care Provider] - 12/21/16 12:45 pm ( ) - Diet and Activity Activity: resume usual activities as tolerated, wear oxygen at all times Diet: diabetic diet, low fat, low cholesterol, low salt diet (fluid restriction to 1L/day) Hospital course: Mr. Amor is a 71 year old male with multiple medical problems admitted with worsening peripheral edema and shortness of breath. He is noted to have an acute exacerbation of systolic CHF. Cardiology has been consulted and patient was started on Bumex along with fluid restriction, daily weights and urine output monitoring. He had inappropriate response to this and his diuretics were changed to IV Lasix with significant weight loss and urine output. His chest x-ray was also suggestive of possible pneumonia along with pulmonary edema and he was started on broad-spectrum IV antibiotics and later continued on IV Levaquin. His oxygen requirements gradually came down to his baseline of 3 L/m. He was also started on IV steroids for mild acute exacerbation of COPD, which caused steroid-induced hyperglycemia, controlled with subcutaneous insulin. He has acute on chronic renal failure due to the use of IV diuretics and his serum creatinine has stabilized around 2 at this time. His diuretic dose is being decreased to 40 mg twice daily at home. Patient is currently doing much better with significant improvement in his peripheral edema and breathing status and oxygen requirements. He is noted to have mild leukocytosis which is thought to be due to the use of IV steroids. Repeat chest x-ray showed no evidence of worsening or new infiltrates. He is medically stable for discharge with oral antibiotics, steroid taper. He is noted to have diuretic induced hypokalemia persistently and he is being discharged on potassium supplements along with Lasix. His daughter Kelsey has been explained in detail regarding his hospital course and plan of care. She also requested for a prescription for glucometer as patient is not a known diabetic but is noted to have hyperglycemia while in the hospital due to steroid use. This has been provided to him. - Time Spent with Patient Total time spent providing and/or coordinating discharge services: Greater than 30 minutes (50 min) - Constitutional Vitals: Temp Pulse Resp BP Pulse Ox 97.7 F 92 20 143/85 95 12/15/16 11:13 12/15/16 11:13 12/15/16 11:20 12/15/16 11:20 12/15/16 11:20 General appearance: Present: A&O X 3, answers questions appropriately - Respiratory Respiratory exam: Present: CTAB (scattered occasional rhonchi). Absent: accessory muscle use, rales, rhonchi, wheezes - Cardiovascular Cardiovascular exam: Present: RRR, +S1, +S2. Absent: diastolic murmur, gallop, rubs, systolic murmur - VTE Documentation of Mechanical Device: Graduated compression elastic hosiery
[2016-12-15] MEDS ORDERED: Levofloxacin 500 MG/100 ML 500 MG/100 ML BAG IVPB SCH (14:00)
[2016-12-16] MEDS ORDERED: MethylPREDNISolone 40 MG/ML VIAL IVP SCH (09:00)
== END 2016-12-15 14:13 | disposition home or self-care (01) | DRG 291 ==
LOC: EMEROO 17:12 → SUATTDRO 22:49 → 2ANU 22:49
PROVIDERS: ADMIT Internal Medicine; ATTEND Internal Medicine